=== PATIENT | female | born 1985 | race Caucasian/White ===

== ENCOUNTER 2023-05-14 09:00 | Outpatient (RCR) | payer OTHER, SELFPAY | END 2023-06-18 14:48 | disposition home or self-care (01) | LOC: HO.PT 09:00 | PROVIDERS: PCP Internal Medicine; Visit Provider Psychiatry & Neurology Neurology | DX: C71.9 Malignant neoplasm of brain, unspecified (principal) | CPT/HCPCS: 97110; 97116; 97162 ==

== ENCOUNTER 2023-06-12 09:00 | Outpatient (RCR) | payer OTHER, SELFPAY | END 2023-07-31 13:03 | disposition home or self-care (01) | LOC: HO.OT 09:00 | PROVIDERS: PCP Internal Medicine; Visit Provider Psychiatry & Neurology Neurology | DX: R29.898 Other symptoms and signs involving the musculoskeletal system (principal); C71.9 Malignant neoplasm of brain, unspecified | CPT/HCPCS: 97035; 97110; 97112; 97166; 97530 ==